=== PATIENT | female | born 1955 | race Caucasian/White ===

== ENCOUNTER 2016-09-18 05:31 | Day surgery (SDC) | payer BC ==
[2016-09-18] VITALS (24 sets, daily range): BP systolic 103–156; BP diastolic 53–87; PULSE 56–68; RESP 13–27; Ht 160 cm; Wt 105.5 kg
[~2016-09-18] VITALS: Ht 160 cm; Wt 105.5 kg
[~2016-09-18 05:31] MED LIST: ASPI-535 PO; CHOL100013 PO; GLIM4TAB PO; LANT3I SC; LEVO500V2 IJ; LISI10TA2 PO; MELO-110 PO; METF-480 PO; SITA1TBM7 PO; TRAM100T2 PO
[2016-09-18 06:39] LABS: BASOPHILS % 0.5 % (0.0-2.0); EOSINOPHILS # 0.2 10^3/ul (0.0-0.5); EOSINOPHILS % 2.4 % (0.0-7.0); HEMATOCRIT 34.8 % (37.0-47.0); HEMOGLOBIN 11.1 g/dl (12.0-16.0); LYMPHOCYTES # 3.6 10^3/ul (0.8-2.9); LYMPHOCYTES % 48.7 % (15.0-51.0); MEAN CORPUSCULAR HEMOGLOBIN 26.6 pg (29.0-33.0); MEAN CORPUSCULAR HGB CONC 31.9 g/dl (32.0-37.0); MEAN CORPUSCULAR VOLUME 83.3 fl (82.0-101.0); MEAN PLATELET VOLUME 11.6 fl (7.4-10.4); MONOCYTE # 0.6 10^3/ul (0.3-0.9); MONOCYTES % 7.8 % (0.0-11.0); NEUTROPHILS % 40.5 % (39.0-77.0); PLATELET COUNT 291 10^3/UL (140-415); RED BLOOD COUNT 4.18 10^6/ul (4.20-5.40); RED CELL DISTRIBUTION WIDTH 15.7 % (11.5-14.5); WHITE BLOOD COUNT 7.5 10^3/ul (4.8-10.8)
[2016-09-18 06:40] LABS: INR 0.92; PROTIME 12.4 Sec (12.2-14.2)
[2016-09-18 06:41] LABS: PARTIAL THROMBOPLASTIN TIME 30.6 Sec (25.0-35.0)
[2016-09-18 06:45] LABS: CHOL/HDL RATIO 4.7 RATIO
[2016-09-18 06:53] LABS: CALCIUM 9.7 mg/dl (8.4-10.2); CREATININE 0.55 mg/dl (0.44-1.00)
[2016-09-18] MEDS ORDERED: LINA5TAB PO (07:10)
[2016-09-18] MEDS ORDERED: LOSA100T7 PO (07:10)
[2016-09-18] MEDS ORDERED: ISOS30TA18 PO (07:10)
[2016-09-18] MEDS ORDERED: CARV3.12 PO (07:10)
[2016-09-18] MEDS ORDERED: SITA1TBM7 PO (07:10)
[2016-09-18] MEDS ORDERED: AMLO-145 PO (07:10)
[2016-09-18] MEDS ORDERED: LEVO175T6 PO (07:10)
[2016-09-18 07:23] LABS: ADD SCAN DIFF NO
[2016-09-18] MEDS ORDERED: DIPHENHYDRAMINE 50 MG CAP PO ONE (07:30)
[2016-09-18] MEDS ORDERED: FAMOTIDINE 20 MG TAB PO ONE (07:30)
[2016-09-18] MEDS ORDERED: DIAZEPAM 5 MG TAB PO ONE (07:30)
[2016-09-18] MEDS ORDERED: SOD CHLORIDE 0.45% 1,000 ML IV ONE (07:30)
--- NOTE | 2016-09-18 07:44 | RADRPT ---
PROCEDURE: XR Chest. CLINICAL INDICATION: Preop TECHNIQUE: An AP view of the chest was obtained. COMPARISON: No prior exam is available for comparison. FINDINGS: There is prominence of the interstitial markings. No pleural effusion or pneumothorax is seen. Th e cardiomediastinal silhouette is mildly enlarged . Calcifications are seen within the aortic arch. The osseous structures demonstrate senescent changes. IMPRESSION: 1. Mild prominence of the interstitial markings, may reflect mild underlying interstitial edema or chronic lung changes. 2. Mild cardiomegaly and aortic atherosclerosis. RPTAT: HH .Sarah Tan MD, MD Date Time Electronically viewed and signed by .Sarah Tan MD, on 09/18/2016 07:44 .G/
[2016-09-18] MEDS ORDERED: LIDOCAINE 1% (MDV) 20 ML INJ ONE (08:39)
[2016-09-18] MEDS ORDERED: HEPARIN 1000 UNITS/ML 10 ML INJ ONE (08:39)
[2016-09-18] MEDS ORDERED: VERAPAMIL 5 MG INJ ONE (08:39)
[2016-09-18] MEDS ORDERED: FENTAnyl 50 MCG/ML VIAL ONE (08:39)
[2016-09-18] MEDS ORDERED: IODIXANOL LOCM 100 ML BTL ONE (08:39)
[2016-09-18] MEDS ORDERED: NITROGLYCERIN (IC) 100 MCG/ML INJ ONE (08:39)
[2016-09-18] MEDS ORDERED: MIDAZOLAM 1 MG/ML 2 ML INJ ONE (08:39)
[2016-09-18] MEDS ORDERED: SOD CHLORIDE 0.9% 1,000 ML IV SCH (10:04)
--- NOTE | 2016-09-18 10:16 | OPR ---
Date/Time of Note Date/Time of Note DATE: 09/18/16 TIME: 10:10 Operative Report Procedure Date: Sep 18, 2016 Preoperative Diagnosis abnormal cardiac stress test/chest pain Postoperative Diagnosis non-obstructive cad Operation Performed 1.C 2.Coronary angiography 3.30 minutes concious sedation Surgeon: LUCY ALLAN Anesthesia: other (moderate concious sedation) Estimated Blood Loss: 0 - 10 ml's Complications: None Pt Condition Post Procedure: stable Disposition: PACU Operative\Procedure Findings 20% prox LAD, 30% mid LAD 30% mid RCA LVEF 60 LVEDP 28, NO sig Procedure Description 6F JL 3.5, JR 4, pigtail LUCY ALLAN Sep 18, 2016 10:16
[2016-09-18] MEDS ORDERED: AL HYDROX/MG HYDROX/SIMETH 30 ML CUP PO PRN (10:30)
[2016-09-18] MEDS ORDERED: ONDANSETRON 4 MG INJ IV PRN (10:30)
[2016-09-18] MEDS ORDERED: ACETAMINOPHEN 325 MG TAB PO PRN (10:30)
[2016-09-18] MEDS ORDERED: morphine 2 MG INJ IV PRN (10:30)
--- NOTE | 2016-09-21 20:56 | RADRPT ---
Vent Rate: 61 bpm RR Interval: 0 msec ID Interval: 192 msec QRS Duration: 84 msec QT Interval: 456 msec QTC Interval: 459 msec P-R-T [place]: 54 - 0 - -69 degrees Normal sinus rhythm Possible Anterior infarct , age undetermined Abnormal ECG Electronically Signed By: Jeff Lopez [id number]
== END 2016-09-18 15:38 | disposition home or self-care (01) ==
LOC: SDS 05:31
PROVIDERS: ATTEND Internal Medicine
DX: I25.10 Atherosclerotic heart disease of native coronary artery without angina pectoris (principal)
CPT/HCPCS: 71010; 80048; 80061; 82962; 85025; 85610; 85730; 93005; 93458; J1644; J2250; J3010; Q9967; Z7610

== ENCOUNTER 2018-12-16 12:48 | Emergency (ER) | payer BC ==
[~2018-12-16] VITALS: Ht 157.5 cm; Wt 101.4 kg
[~2018-12-16 12:48] MED LIST changes: +AMLO-145 PO; +AMLO5TAB4 PO; +ATOR20TA38 PO; +CARV3.12 PO; +CARV6.2579 PO; +GABA300C16 PO; +GLIM2TAB2 PO; -GLIM4TAB PO; +GLIM4TAB3 PO; +INSU100I33 SC; +ISOS30TA20 PO; +ISOS30TA67 PO; -LANT3I SC; +LEVO175T38 PO; +LEVO175T6 PO; -LEVO500V2 IJ; +LINA5TAB PO; -LISI10TA2 PO; +LOSA100T15 PO; -MELO-110 PO; +MELO15TA30 PO; +METF100010 PO; +NAPR-688 PO; +POLY15DR11 BOTH EYES; +SEMA0.25 SQ; -TRAM100T2 PO; +TRAM100T33 PO
[2018-12-16 12:49] VITALS: Ht 157.5 cm; Wt 101.4 kg
[2018-12-16] MEDS ORDERED: LIDOCAINE/MYLANTA 40 ML BTL PO STA (13:31)
[2018-12-16] MEDS ORDERED: KETOROLAC 15 MG INJ IV STA (13:31)
[2018-12-16] MEDS ORDERED: BELLADONNA/PHENOBARBITAL TAB PO STA (13:31)
[2018-12-16 15:25] VITALS: BP 136/81; PULSE 62; RESP 18
== END 2018-12-16 15:41 | disposition home or self-care (01) ==
LOC: E/R 12:48
DX: R07.82 Intercostal pain (principal); I10 Essential (primary) hypertension; E11.9 Type 2 diabetes mellitus without complications; E66.9 Obesity, unspecified; Z68.41 Body mass index [BMI] 40.0-44.9, adult; Z79.4 Long term (current) use of insulin; Z79.82 Long term (current) use of aspirin
CPT/HCPCS: 36415; 71045; 80053; 83690; 84484; 85025; 96374; J1885; Z7502; Z7610; 93005